=== PATIENT | male | born 1980 | race Caucasian/White ===

== ENCOUNTER 2023-05-29 12:42 | Emergency (ER) | payer MEDICAID ==
[~2023-05-29] VITALS: Ht 198.1 cm; Wt 122.7 kg
[2023-05-29 12:56] VITALS: BP 174/83; PULSE 64; TEMP 98.6; O2SAT 96
[2023-05-29] MEDS ORDERED: PRED50TA PO (13:00)
[2023-05-29] MEDS ORDERED: INDO50CA96 PO (13:00)
[2023-05-29] MEDS ORDERED: HYDR-3964 PO (13:02)
[2023-05-29] MEDS ORDERED: ketorolac trometh. 30mg/ml inj. IM ONE (13:15)
[2023-05-29 13:22] VITALS: RESP 7
== END 2023-05-29 13:27 | disposition home or self-care (01) ==
LOC: ER 12:43
DX: M10.071 Idiopathic gout, right ankle and foot (principal); Z88.8 Allergy status to other drugs, medicaments and biological substances
CPT/HCPCS: 96372; 99283; J1885

== ENCOUNTER 2024-05-07 07:51 | Inpatient (IN) | payer MEDICAID ==
[2024-05-03 14:30] LABS: BASOPHILS # (AUTO) 0.1 X10'3 (0-0.2); BASOPHILS % (AUTO) 0.7 % (0-1); EOSINOPHILS % (AUTO) 0.1 % (0-6); LYMPHOCYTES # (AUTO) 1.2 X10'3 (1.1-4.8); MEAN CORPUSCULAR HEMOGLOBIN 30.8 PG (27.0-31.0); MEAN CORPUSCULAR VOLUME 93.4 FL (78-98); MEAN PLATELET VOLUME 9.1 FL (7.4-10.4); MONOCYTES % (AUTO) 7.5 % (2-12); NEUTROPHILS # (AUTO) 11.4 X10'3 (1.8-7.7); NEUTROPHILS % (AUTO) 82.7 % (42-75); PRE OP HEMATOCRIT 43.5 % (42.0-52.0); PRE OP HEMOGLOBIN 14.4 g/dL (14.0-17.9); PRE OP PLATELET COUNT 255 X10'3 (140-440); PRE OP WHITE BLOOD COUNT 13.8 10'3 (4.8-10.8); RED BLOOD COUNT 4.66 X10'6 (4.70-6.10); RED CELL DISTRIBUTION WIDTH 13.9 % (11.5-14.5)
[2024-05-03 14:46] LABS: ALBUMIN 3.8 G/DL (3.4-5.0); ALBUMIN/GLOBULIN RATIO 1.2 (1.1-1.5); ALKALINE PHOSPHATASE 47 IU/L (46-116); BLOOD UREA NITROGEN 13 MG/DL (7-18); CALCIUM 8.7 MG/DL (8.5-10.1); CHLORIDE 104 MMOL/L (99-107); CREATININE 0.93 MG/DL (0.60-1.10); PRE OP ALT 47 U/L (30-65); PRE OP ANION GAP 6 (8-16); PRE OP AST 25 U/L (10-37); PRE OP BILIRUB, TOTAL 1.2 MG/DL (0.0-1.0); PRE OP GLUCOSE 114 MG/DL (70-104); PRE OP POTASSIUM 3.8 MMOL/L (3.4-5.1); PRE OP SODIUM 139 MMOL/L (135-145); TOTAL CARBON DIOXIDE 29.2 MMOL/L (24-32); TOTAL PROTEIN 7.1 G/DL (6.4-8.2); eGFR 89 ML/MIN
[2024-05-07] VITALS (37 sets, daily range): BP systolic 141–198; BP diastolic 66–104; PULSE 40–60; RESP 8–18; TEMP 97.5–98.2; O2SAT 94–100
[~2024-05-07] VITALS: Ht 198.1 cm; Wt 116.5 kg
[~2024-05-07 07:51] MED LIST: CELE-127 PO; COLC0.6T72 PO; HYDR-3964 PO; PRED10TA PO
[2024-05-07] MEDS ORDERED: BUPIVAcaine 2.5mg/ml inj 50ml vial (contains preservative) ONE (08:49)
[2024-05-07] MEDS: ringers solution, lacted 1,000 ML IV SCH ×2 (08:57→10:35)
[2024-05-07] MEDS: ceFAZolin 2gm in dextrose, iso 50 ML IV ONE (08:57)
[2024-05-07] MEDS: famotidine 20mg tablet PO ONE (08:57)
[2024-05-07] MEDS ORDERED: LIDOcaine 1% (10mg/ml)w/preservative inj. 20ml MDV ONE (09:36)
[2024-05-07] MEDS ORDERED: LIDOcaine 1% (10mg/ml) 2ml vial ONE (09:41)
[2024-05-07] MEDS ORDERED: propofol inj 20 ML IV ONE (09:48)
[2024-05-07] MEDS ORDERED: fentaNYL/PF 50MCG/1 ML 2ML syringe ONE (09:48)
[2024-05-07] MEDS ORDERED: midazolam 1 mg/ML 2ml injection ONE (09:48)
[2024-05-07] MEDS ORDERED: sevoflurane 250ml liquid IH ONE (09:54)
[2024-05-07] MEDS ORDERED: morphine 2 MG/ML inj. syringe IV PRN (10:35)
[2024-05-07] MEDS ORDERED: proCHLORperazine 10 MG/2 ml inj IV PRN (10:35)
[2024-05-07] MEDS ORDERED: meperidine/PF 25mg/ml syringe IV PRN ×2 (10:35)
[2024-05-07] MEDS: acetaminophen 1,000mg/100ml IV 100 ML IV ONE (11:50)
[2024-05-07] MEDS: morphine 4 MG/ML inj SYRINge IV PRN (11:54)
[2024-05-07] MEDS: meperidine/PF 25mg/ml syringe IV PRN (12:13)
[2024-05-07] MEDS: HYDROcodone/acetaminophen 10/325mg tab PO ONE (12:39)
[2024-05-07] MEDS: ketorolac trometh 30MG/ML vial 30 MG/ML VIAL IV ONE (13:47)
[2024-05-07] MEDS: HYDROmorphone/PF 0.2 MG/ML SYRINGE IV PRN (16:32)
[2024-05-07] MEDS: celeCOXIB 100mg capsule PO SCH (17:17)
[2024-05-07] MEDS: oxyCODONE/APAP 10/325mg tablet PO PRN (17:49)
[2024-05-07] MEDS: ondansetron/PF 4mg/2ml inj IV PRN (18:26)
[2024-05-07] MEDS: LIDOcaine 2% jelly 6ml syringe ***for topical use only MM ONE (20:19)
[2024-05-07] MEDS: HYDROmorphone 1 mg/ml syringe IV PRN (22:07)
[2024-05-07] MEDS: metoclopramide 10mg tablet PO ONE (22:57)
[2024-05-07] MEDS: simethicone 125mg capsule PO PRN (23:18)
[2024-05-08] VITALS (8 sets, daily range): BP systolic 126–146; BP diastolic 67–79; PULSE 53–70; RESP 16–20; TEMP 96.8–98.9; O2SAT 95–98
[2024-05-08] MEDS: ondansetron/PF 4mg/2ml inj IV PRN (02:18)
[2024-05-08] MEDS: ketorolac trometh 15mg/ml vial 15 MG/ML ML IV ONE (04:59)
[2024-05-08] MEDS: predniSONE 5mg/5ml UD oral solution PO SCH (08:30)
[2024-05-08] MEDS: colchicine 0.6mg tablet PO SCH (09:35)
[2024-05-08] MEDS: HYDROcodone/acetaminophen 5mg/325mg tablet PO PRN (09:45)
[2024-05-08] MEDS: predniSONE 20 mg tablet PO SCH (12:10)
[2024-05-08] MEDS: HYDROcodone/acetaminophen 10/325mg tab PO PRN (17:05)
[2024-05-09 02:00] VITALS: BP 127/74; PULSE 63; RESP 14; TEMP 98.9; O2SAT 98
[2024-05-09 07:00] VITALS: BP 138/72; PULSE 72; RESP 16; TEMP 98.1; O2SAT 95
[2024-05-09 08:00] VITALS: RESP 16; O2SAT 98
[2024-05-09 11:00] VITALS: BP 143/76; PULSE 71; RESP 16; TEMP 98.8; O2SAT 96
[2024-05-09 14:31] VITALS: RESP 16
== END 2024-05-09 15:40 | disposition home or self-care (01) | DRG 315 ==
LOC: PAS 07:51 → PCU 3S 07:52
PROVIDERS: ADMIT Orthopaedic Surgery Hand Surgery; ATTEND Orthopaedic Surgery Hand Surgery
PROC: 0RBL0ZZ Excision of Right Elbow Joint, Open Approach (ICD-10-PCS; principal; 2024-05-07 09:54)
DX: M1A.0411 Idiopathic chronic gout, right hand, with tophus (tophi) (principal); Z88.8 Allergy status to other drugs, medicaments and biological substances; Z91.018 Allergy to other foods
CPT/HCPCS: 36415; 80053; 85025; 87081; 93005; A4215; A4618; A6253; A6446; A6449; A7000; C1758; G0378; J0131; J0690; J1171; J1885; J2175; J2250; J2270; J2405; J2704; J3010; J3490; J7120; J7512

== ENCOUNTER 2024-05-14 18:44 | Emergency (ER) | payer MEDICAID ==
[~2024-05-14] VITALS: Ht 198.1 cm; Wt 120.0 kg
[2024-05-14] MEDS ORDERED: HYDR-3973 PO ×2 (19:28→20:54)
[2024-05-14] MEDS: HYDROcodone/acetaminophen 10/325mg tab PO STA (19:46)
[2024-05-14 20:02] VITALS: BP 152/60; PULSE 58; RESP 18; TEMP 98.7; O2SAT 99
[2024-05-14] MEDS ORDERED: OXYC-150 PO (21:03)
== END 2024-05-14 20:05 | disposition home or self-care (01) ==
LOC: ER 18:44
DX: G89.18 Other acute postprocedural pain (principal); M10.9 Gout, unspecified; Z91.018 Allergy to other foods; Z79.2 Long term (current) use of antibiotics; Z79.899 Other long term (current) drug therapy
CPT/HCPCS: 99283

== ENCOUNTER 2024-05-18 08:46 | Emergency (ER) | payer MEDICAID ==
[~2024-05-18] VITALS: Ht 198.1 cm; Wt 124.0 kg
[~2024-05-18 08:46] MED LIST changes: +HYDR-3973 PO; +OXYC-150 PO
[2024-05-18 09:43] LABS: BASOPHILS # (AUTO) 0.1 X10'3 (0-0.2); BASOPHILS % (AUTO) 0.7 % (0-1); EOSINOPHILS # (AUTO) 0.2 X10'3 (0-0.9); EOSINOPHILS % (AUTO) 0.9 % (0-6); HEMATOCRIT 43.7 % (42.0-52.0); HEMOGLOBIN 14.4 g/dl (14.0-17.9); LYMPHOCYTES # (AUTO) 1.9 X10'3 (1.1-4.8); LYMPHOCYTES % (AUTO) 11.3 % (21-51); MEAN CORPUSCULAR VOLUME 93.8 FL (78-98); MEAN PLATELET VOLUME 8.1 FL (7.4-10.4); MONOCYTES # (AUTO) 1.7 X10'3 (0-0.9); MONOCYTES % (AUTO) 10.3 % (2-12); NEUTROPHILS # (AUTO) 12.7 X10'3 (1.8-7.7); NEUTROPHILS % (AUTO) 76.8 % (42-75); PLATELET COUNT 221 X10'3 (140-440); RED BLOOD COUNT 4.66 X10'6 (4.70-6.10); RED CELL DISTRIBUTION WIDTH 14.3 % (11.5-14.5); WHITE BLOOD COUNT 16.5 X10'3 (4.5-11.0)
[2024-05-18 10:01] LABS: ALANINE AMINOTRANSFERASE 24 U/L (12-78); ALBUMIN 3.6 G/DL (3.4-5.0); ALBUMIN/GLOBULIN RATIO 1.1 (1.1-1.5); ALKALINE PHOSPHATASE 78 IU/L (46-116); ANION GAP 11 (8-16); ASPARTATE AMINO TRANSFERASE 19 U/L (10-37); BILIRUBIN,TOTAL 1.1 MG/DL (0.1-1.0); BLOOD UREA NITROGEN 16 MG/DL (7-18); BUN/CREATININE RATIO 18.6 (10.0-20.0); CALCIUM 8.4 MG/DL (8.5-10.1); CHLORIDE 104 MMOL/L (99-107); CREATININE 0.86 MG/DL (0.60-1.10); GLUCOSE 111 MG/DL (70-104); POTASSIUM 3.4 MMOL/L (3.5-5.1); SODIUM 139 MMOL/L (135-145); TOTAL CARBON DIOXIDE 24.5 MMOL/L (24-32); TOTAL PROTEIN 6.9 G/DL (6.4-8.2); eCRCL 143 ML/MIN; eGFR > 90 ML/MIN
[2024-05-18 10:05] LABS: TOTAL CELLS COUNTED 100
[2024-05-18 10:06] LABS: PLATELET ESTIMATE NORMAL; TEAR DROP CELLS 1+
[2024-05-18] MEDS: HYDROcodone/acetaminophen 5mg/325mg tablet PO ONE (10:08)
[2024-05-18] MEDS ORDERED: CLIN-214 PO (11:08)
[2024-05-18] MEDS: clindamycin 150mg capsule PO ONE (11:16)
[2024-05-18 11:30] VITALS: BP 165/88; PULSE 62; RESP 16; TEMP 98.1; O2SAT 96
== END 2024-05-18 11:31 | disposition home or self-care (01) ==
LOC: ER 08:46
DX: G89.18 Other acute postprocedural pain (principal); L76.34 Postprocedural seroma of skin and subcutaneous tissue following other procedure; M10.9 Gout, unspecified; Z91.018 Allergy to other foods; Z79.899 Other long term (current) drug therapy
CPT/HCPCS: 36415; 80053; 85007; 85025; 99283

== ENCOUNTER 2024-06-25 08:50 | Day surgery (SDC) | payer MEDICAID ==
[2024-06-19 13:57] LABS: BASOPHILS # (AUTO) 0.1 X10'3 (0-0.2); BASOPHILS % (AUTO) 1.3 % (0-1); EOSINOPHILS # (AUTO) 0.2 X10'3 (0-0.9); LYMPHOCYTES # (AUTO) 1.8 X10'3 (1.1-4.8); LYMPHOCYTES % (AUTO) 23.2 % (21-51); MEAN CORPUSCULAR HEMOGLOBIN 31.4 PG (27.0-31.0); MEAN CORPUSCULAR HGB CONC 34.1 g/dL (33.0-36.5); MEAN PLATELET VOLUME 8.9 FL (7.4-10.4); MONOCYTES # (AUTO) 0.8 X10'3 (0-0.9); MONOCYTES % (AUTO) 10.3 % (2-12); NEUTROPHILS # (AUTO) 4.9 X10'3 (1.8-7.7); NEUTROPHILS % (AUTO) 62.2 % (42-75); PRE OP HEMATOCRIT 46.5 % (42.0-52.0); PRE OP HEMOGLOBIN 15.8 g/dL (14.0-17.9); PRE OP PLATELET COUNT 187 X10'3 (140-440); PRE OP WHITE BLOOD COUNT 7.9 10'3 (4.8-10.8); RED BLOOD COUNT 5.05 X10'6 (4.70-6.10); RED CELL DISTRIBUTION WIDTH 14.3 % (11.5-14.5)
[2024-06-19 14:13] LABS: ALBUMIN 3.9 G/DL (3.4-5.0); ALBUMIN/GLOBULIN RATIO 1.3 (1.1-1.5); ALKALINE PHOSPHATASE 57 IU/L (46-116); BLOOD UREA NITROGEN 19 MG/DL (7-18); BUN/CREATININE RATIO 22.1 (10.0-20.0); CALCIUM 8.6 MG/DL (8.5-10.1); CHLORIDE 106 MMOL/L (99-107); CREATININE 0.86 MG/DL (0.60-1.10); PRE OP ALT 29 U/L (30-65); PRE OP ANION GAP 9 (8-16); PRE OP AST 28 U/L (10-37); PRE OP BILIRUB, TOTAL 1.2 MG/DL (0.0-1.0); PRE OP GLUCOSE 99 MG/DL (70-104); PRE OP SODIUM 141 MMOL/L (135-145); TOTAL CARBON DIOXIDE 26.5 MMOL/L (24-32); eGFR > 90 ML/MIN
[2024-06-19 14:23] LABS: PRE OP POTASSIUM 4.2 MMOL/L (3.4-5.1)
[2024-06-25] VITALS (15 sets, daily range): BP systolic 132–171; BP diastolic 75–95; PULSE 53–64; RESP 13–17; TEMP 98.3; O2SAT 92–99
[~2024-06-25] VITALS: Ht 198.1 cm; Wt 125.7 kg
[2024-06-25] MEDS: Cefazolin 3 GM/100ML NS IVPB 100 ML IV ONE (05:30)
[~2024-06-25 08:50] MED LIST changes: -HYDR-3964 PO; -HYDR-3973 PO; -OXYC-150 PO; +OXYC1TAB17 PO; -PRED10TA PO
[2024-06-25] MEDS ORDERED: enalaprilat dihydrate 2.5mg/2ml vial IV PRN (08:55)
[2024-06-25] MEDS ORDERED: meperidine/PF 25mg/ml syringe IV PRN ×3 (08:55)
[2024-06-25] MEDS ORDERED: ringers solution, lacted 1,000 ML IV SCH (08:55)
[2024-06-25] MEDS ORDERED: morphine 4 MG/ML inj SYRINge IV PRN (08:55)
[2024-06-25] MEDS ORDERED: ondansetron/PF 4mg/2ml inj IV PRN (08:55)
[2024-06-25] MEDS ORDERED: labetalol 20mg/4ml (5mg/ml) syringe IV PRN (08:55)
[2024-06-25] MEDS ORDERED: proCHLORperazine 10 MG/2 ml inj IV PRN (08:55)
[2024-06-25] MEDS ORDERED: morphine 2 MG/ML inj. syringe IV PRN (08:55)
[2024-06-25] MEDS ORDERED: LIDOcaine 1% (10mg/ml)w/preservative inj. 20ml MDV ONE (09:06)
[2024-06-25] MEDS ORDERED: BUPIVAcaine 2.5mg/ml inj 50ml vial (contains preservative) ONE (09:06)
[2024-06-25] MEDS ORDERED: LIDOcaine 2% (20mg/ml) 5ml vial ONE (09:17)
[2024-06-25] MEDS: famotidine 20mg tablet PO ONE (10:00)
[2024-06-25] MEDS: ringers solution, lacted 1,000 ML IV SCH (10:01)
[2024-06-25] MEDS ORDERED: fentaNYL/PF 50MCG/1 ML 2ML syringe ONE (10:56)
[2024-06-25] MEDS ORDERED: sevoflurane 250ml liquid IH ONE (11:27)
[2024-06-25] MEDS: oxyCODONE/APAP 10/325mg tablet PO ONE (14:08)
== END 2024-06-25 14:35 | disposition home or self-care (01) ==
LOC: PAS 08:50
PROVIDERS: ATTEND Orthopaedic Surgery Hand Surgery
DX: M10.9 Gout, unspecified (principal); S66.312A Strain of extensor muscle, fascia and tendon of right middle finger at wrist and hand level, initial encounter; X58.XXXA Exposure to other specified factors, initial encounter; Y93.89 Activity, other specified; Y92.89 Other specified places as the place of occurrence of the external cause; Y99.8 Other external cause status; Z79.899 Other long term (current) drug therapy; Z98.890 Other specified postprocedural states; G89.18 Other acute postprocedural pain; Z91.018 Allergy to other foods
CPT/HCPCS: 26480; 36415; 64417; 80053; 82948; 85025; 87070; J0690; J1100; J2003; J2250; J2405; J2704; J3010; J3490; J7030; J7120; Z7506; Z7508; Z7512; A4565; A4618; A6449; A7000

== ENCOUNTER 2024-06-29 03:45 | Emergency (ER) | payer MEDICAID ==
[~2024-06-29] VITALS: Ht 198.1 cm; Wt 123.5 kg
[2024-06-29 03:51] VITALS: BP 159/78; PULSE 54; TEMP 98.1; O2SAT 98
[2024-06-29 04:07] VITALS: RESP 20
[2024-06-29] MEDS: oxyCODONE IR 5mg (immed. release) tablet PO ONE (04:07)
[2024-06-29] MEDS ORDERED: OXYC10TA57 PO (04:16)
== END 2024-06-29 05:24 | disposition home or self-care (01) ==
LOC: ER 03:45
DX: G89.18 Other acute postprocedural pain (principal); M79.641 Pain in right hand
CPT/HCPCS: 29125; 99283; A6222; A4565; A6449